=== PATIENT | male | born 1965 ===

== ENCOUNTER 2017-02-24 07:40 | Day surgery (SDC) | payer OTHER ==
[2017-02-24] VITALS (8 sets, daily range): BP systolic 116–130; BP diastolic 77–82
[~2017-02-24] VITALS: Ht 175.3 cm; Wt 74.8 kg
[~2017-02-24 07:40] MED LIST: ATORVASTATIN CA20 MG ORAL; TENORMIN25 MG ORAL
[2017-02-24] MEDS ORDERED: LR 1000ml 1,000 ML IVLG ONE (08:00)
--- NOTE | 2017-02-24 08:50 | Anethesia Preoperative Eval ---
Anesthesia Pre-op PMH/ROS General Date of Evaluation: Feb 24, 2017 Time of Evaluation: 08:50 Anesthesiologist: maximo ASA Score: ASA 3 Mallampati Score Class I : Soft palate, uvula, fauces, pillars visible Class II: Soft palate, uvula, fauces visible Class III: Soft palate, base of uvula visible Class IV: Only hard plate visible Mallampati Classification: Class II Surgeon: zulma Diagnosis: abdominal pain Surgical Procedure: egd Anesthesia History: none Social History: smoking - nonsmoker Family History: no anesthesia problems Allergies: Coded Allergies: PENICILLINS (Verified Allergy, Unknown, 02/23/17) Medications: see eMAR Past Medical History Cardiovascular: Reports: HTN, other - coronary Pulmonary: Reports: asthma Gastrointestinal/Genitourinary: Reports: GERD Anesthesia Pre-op Phys. Exam Physician Exam Last Vital Signs Date Time Temp Pulse Resp B/P (MAP) Pulse Ox O2 Delivery O2 Flow Rate FiO2 02/24/17 08:04 97.4 58 18 130/79 99 Room Air Constitutional: NAD Neurologic: CN 2-12 intact Cardiovascular: RRR Respiratory: CTA Gastrointestinal: S/NT/ND Airway Exam Mallampati Score: Class II MO: full Neck: supple TMD: 2fb ROM: full Teeth: intact Anesthesia Pre-op A/P Risk Assessment & Plan Assessment: asa3 Plan: mac Status Change Before Surgery: No Pre-Antibiotics Drug: RAGHAVENDRA Tyler Feb 24, 2017 08:50
[2017-02-24] MEDS ORDERED: Lidocaine 1% MPF 10mg/ml 5ml ONE (08:52)
[2017-02-24] MEDS ORDERED: Propofol 200mg/20ml IV ONE (08:52)
[2017-02-24] MEDS ORDERED: LR 1000ml ONE (08:52)
--- NOTE | 2017-02-24 08:57 | Short Stay Surgery H&P ---
History of Present Illness History of Present Illness Chief Complaint Abdominal pains and GERd symptoms, R/O Peptic ulcer HPI Manohar Wakefield is a 51 year old male who was admitted on for Abdominal Pain/ Gerds Patient History Allergies: Coded Allergies: PENICILLINS (Verified Allergy, Unknown, 02/23/17) PAST MEDICAL HISTORY: (1) Diabetes (2) Hypertension Past Surgeries: Social History: Medication History Scheduled Atenolol (Tenormin), 12.5 MG ORAL DAILY, (Reported) Atorvastatin Calcium* (Atorvastatin Calcium*), 20 MG ORAL BEDTIME, (Reported) Review of Systems Cardiovascular: Reports: no symptoms Respiratory: Reports: no symptoms Skeletal: Reports: no symptoms Gastrointestinal: Reports: gastro esophageal reflux disease Genitourinary: Reports: no symptoms Neurologic: Reports: no symptoms Endocrine: Reports: no symptoms Hematologic: Reports: no symptoms Physical Exam Vital Signs Last Vital Signs Date Time Temp Pulse Resp B/P (MAP) Pulse Ox O2 Delivery O2 Flow Rate FiO2 02/24/17 08:04 97.4 58 18 130/79 99 Room Air Skin: normal HENT: normal Heart: normal Lungs: normal Abdomen: normal Extremities: normal Plan Plan of Care Upper GI endoscopy and biopsy. Preop Interventions None. Summary of Findings See the reports. Final Diagnosis: Attestation Are the patient's medical conditions optimized for surgery? Attestation Response: yes MADIHA DELANEY Feb 24, 2017 08:57
--- NOTE | 2017-02-24 08:58 | Pre-Procedure Note/Attestation ---
Pre-Procedure Note/Attestation Complete Prior to Procedure Planned Procedure: left Procedure Narrative: Endoscopic examination of the upper GI tract to R/O ulcer/gastritis. Indications for Procedure Pre-Operative Diagnosis: R/O Gastritis/Peptic Ulcer Attestation I attest that I discussed the nature of the procedure; its benefits; risks and complications; and alternatives (and the risks and benefits of such alternatives ), prior to the procedure, with the patient (or the patient's legal canvas products sales representative). I attest that, if there was a reasonable possibility of needing a blood transfusion, the patient (or the patient's legal canvas products sales representative) was given the [place] [facility] [employer] [facility] standardized written summary, pursuant to the Skyler Davis Blood Safety Act ([place] Health and Safety Code # 1645, as amended). I attest that I re-evaluated the patient just prior to the surgery and that there has been no change in the patient's H&P, except as documented below: ELAINA,SAID Feb 24, 2017 08:58
[2017-02-24] MEDS ORDERED: LR 1000ml 1,000 ML IVLG SCH (08:59)
[2017-02-24] MEDS ORDERED: DiphenhydrAMINE 50mg/ml Inj IVP PRN (09:00)
[2017-02-24] MEDS ORDERED: Midazolam 2mg/2ml Inj IVP PRN (09:00)
[2017-02-24] MEDS ORDERED: fentaNYL 100 mcg/2 mL IV PRN (09:00)
[2017-02-24] MEDS ORDERED: Atropine Inj 1mg/10ml Syr IV PRN (09:00)
--- NOTE | 2017-02-24 09:16 | Endoscopy Procedure Note ---
Endoscopy Procedure Note Indication for Procedure: Abdominal pains/GERD. Procedures Performed: EGD - Mild duodenal erosions/duodenitis, biopsied; otherwise normal Upper GI endoscopy. Biopsies done per random from gastric body and GE junction. Specimen: yes Pt Tolerated Procedure Well: Yes Estimated Blood Loss: none Anesthesiologist: Dr. Valladares Anesthesia: moderate sedation Implant(s) used?: No 50 yrs or older w/o bx or poly: Not Applicable 10yrs. F/U not recommended: Not Applicable If not recommended, why?: Med reason:<3 yrs.: MADIHA DELANEY Feb 24, 2017 09:16
--- NOTE | 2017-02-24 09:17 | Discharge Instructions ---
Discharge Instructions Discharge Instructions Follow up with: See the doctor in office after two weeks For Congestive Heart Failure Reminder Report to your physician any weight gain of 5 pounds or more in one week. MADIHA DELANEY Feb 24, 2017 09:16
--- NOTE | 2017-02-24 10:22 | Immediate Post-Op Evaluation ---
Immediate Post-Op Evalulation Immediate Post-Op Evalulation Procedure: egd Date of Evaluation: Feb 24, 2017 Time of Evaluation: 09:35 IV Fluids: 250ml lr Blood Products: none Estimated Blood Loss: negligible Blood Pressure Systolic: 123 Blood Pressure Diastolic: 75 Pulse Rate: 64 Respiratory Rate: 18 O2 Sat by Pulse Oximetry: 99 Temperature (Fahrenheit): 97.4 Pain Score (1-10): 0 Nausea: No Vomiting: No Complications none Patient Status: awake, reacts, patent Hydration Status: adequate Drug: RAGHAVENDRA Tyler Feb 24, 2017 10:22
--- NOTE | 2017-02-24 10:24 | 48 Hour Post Anesthesia Eval ---
Post Anesthesia Evaluation Procedure: egd Date of Evaluation: Feb 24, 2017 Time of Evaluation: 09:40 Blood Pressure Systolic: 122 0: 77 Pulse Rate: 69 Respiratory Rate: 18 Temperature (Fahrenheit): 97.4 O2 Sat by Pulse Oximetry: 99 Airway: patent Nausea: No Vomiting: No Pain Intensity: 0 Hydration Status: adequate Cardiopulmonary Status: stable Mental Status/LOC: patient returned to baseline Post-Anesthesia Complications: none Follow-up care needed: N/A RAGHAVENDRA CARRASQUILLO Feb 24, 2017 10:24
--- NOTE | 2017-02-24 17:16 | Pre-op HX & Phy Repo 2 SIG ---
DATE OF ADMISSION: 02/24/2017 REFERRING PHYSICIAN: Flakito Grider M.D., not on the staff. 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 The patient basically complains of experiencing pain over the upper part of the abdomen and epigastric area, associated with heartburn. As such, he has tried to use different diets to control this acid reflux condition with the following medication such as PPIs and sometime antacids as well. The applicant was seen in the office. He was not taking any particular medication in this category. He also reported that he had lost some 25 pounds of weight by going through a special diet as I mentioned. He reports that by following this diet, he really controls his symptoms of gastroesophageal reflux. The applicant does have history of taking nonsteroidal anti-inflammatory agents such as ibuprofen and Naproxen in that family that he had been taking for the control of his bodily pain that he has had subsequent to the injuries at work site, but currently, for a long period of time, he denies taking any medications as such. 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 The applicant also does have history of hypertension being diagnosed recently and also he has received complete cardiac workup, which revealed evidence of blockage within the coronary artery. He has been under the care of bulldozer/loader/compactor/scraper, however, for that condition and received proper care. 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 PAST MEDICAL HISTORY: Hypertension and sleep apnea. SURGICAL HISTORY: Stent placement in 2016 for coronary angiopathy and right shoulder surgery for torn ligament. ALLERGIES: None significant. HABITS: The applicant rarely drinks alcohol, but does not use illicit drugs and does not smoke cigarettes. FAMILY HISTORY: Significant for diabetes and strokes. PHYSICAL EXAMINATION: GENERAL: Physical examination at this time reveals alert and oriented gentleman, does not seem to be in acute distress. He looks well developed and nourished. VITAL SIGNS: All stable. HEENT: Normocephalic. Pupils are equal in size and reactive to light and accommodation. No visible jaundice. NECK: Supple. No JVD, thyromegaly, or adenopathy. CHEST: Clear to auscultation and percussion. No rales or rhonchi. HEART: S1 and S2 normal. Regular rhythm. No gallops or murmur. ABDOMEN: Soft. Very minimal tenderness over the upper part of the abdomen, otherwise, completely normal findings. No organomegaly or abdominal masses. EXTREMITIES: Unremarkable. PRELIMINARY IMPRESSION: 1. History of gastroesophageal reflux, under good control at this time, rule out underlying gastritis, esophagitis, duodenitis, etc. 2. History of possible coronary artery disease and hypertension. RECOMMENDATIONS: The applicant seems to be stable at this time to undergo the procedure of upper GI endoscopy, for which he has been scheduled. He understands the risks and benefits and signs the consent. Said Alejandro Byrnes DR: LAMBERTO JOB#: [id number] CC:
--- NOTE | 2017-02-24 20:16 | Procedure Note ---
DATE OF PROCEDURE: 02/24/2017 SURGEON: Estephania Byrnes M.D. PROCEDURE: Esophagogastroduodenoscopy with biopsy. REFERRING PHYSICIAN: Flakito Grider M.D. PREOPERATIVE DIAGNOSES: History of gastroesophageal reflux and epigastric pain. POSTOPERATIVE DIAGNOSIS: Mild duodenal erosions with mild erythema consistent with duodenitis, otherwise completely normal upper gastrointestinal endoscopy. Biopsies were done from the duodenal area as well as gastric body and gastroesophageal junction. MEDICATION USED: Per Dr. Valladares, anesthesiologist. INSTRUMENT: GIF Olympus upper gastrointestinal video endoscope. DESCRIPTION OF PROCEDURE: The patient after arriving endoscopy unit, was told about risks and benefits of the procedure, which he accepted and signed informed consent. At this time, he was put in the left lateral decubitus position. After adequate IV sedation, the scope was gently passed through the cricopharyngeal area, was lodged into the upper esophagus, and gradually advanced towards gastroesophageal junction. The entire length of the esophagus looked normal. There was no any evidence of varices, inflammatory process, or ulceration etc. GE junction looked normal, however, one biopsy from the area of the lower esophagus at the gastroesophageal junction was obtained to rule out any dysplasia or Clinton's. There was no stricture in this area. Subsequently, the scope was advanced into the stomach. Gastric cavity was distended with insufflation of air revealing normal gastric mucosa in the areas of the fundus and the body and the antrum without any evidence of erythema, ulcers, tumors, polyps etc. At this point, one random biopsy from gastric body obtained and subsequently the scope was passed through normal looking pylorus and entered into the duodenal bulb. At the distal part of the duodenal bulb, one could see evidence of small erosions and inflammatory process with exudative covering, which were very mild and there was no latonya bleeding or vascular abnormality noted. One random biopsy from this section was obtained. Subsequently, the scope was passed through the second portion of duodenal, which revealed no other abnormalities. Finally, the scope was pulled out and the procedure was terminated. The patient tolerated the procedure well and left the endoscopy room in a good condition. Estephania Byrnes M.D. DR: HAYLEE JOB#: [id number] CC:
== END 2017-02-24 10:50 | disposition home or self-care (01) ==
LOC: SUR 07:40
DX: K21.9 Gastro-esophageal reflux disease without esophagitis (principal); K29.50 Unspecified chronic gastritis without bleeding; K29.80 Duodenitis without bleeding; I10 Essential (primary) hypertension; Z83.3 Family history of diabetes mellitus; Z82.3 Family history of stroke; Z88.0 Allergy status to penicillin
CPT/HCPCS: 43239; J2704; J7120; 94003; 94150